=== PATIENT | female | born 1950 | race Caucasian/White ===

== ENCOUNTER 2018-09-30 16:18 | Outpatient (REF) | payer BC, SELFPAY | END 2018-09-30 16:38 | LOC: NCHCN 16:18 | PROVIDERS: PCP Family Medicine; Visit Provider Family Medicine | DX: R30.0 Dysuria (principal) | CPT/HCPCS: 87077; 87086; 87186 ==

== ENCOUNTER 2018-11-11 14:38 | Outpatient (REF) | payer BC, SELFPAY ==
[2018-11-11 21:25] LABS: Anion Gap 11.8 mmol/L (3-11); BUN 28 mg/dL (7-18); CO2 26.2 mmol/L (21.0-32.0); CREATININE 1.02 mg/dL (0.55-1.02); Calcium 9.2 mg/dL (8.5-10.1); Chloride 102 mmol/L (98-107); Estimated GFR 54.22 (mL/min/1.73m2); Glucose 104 mg/dL (70-100); Potassium 4.1 mmol/L (3.5-5.1); Sodium 140 mmol/L (136-145); TSH (W/Ref FT4) 1.25 uIU/mL (0.358-3.74)
== END 2018-11-11 14:58 ==
LOC: NCHCN 14:38
PROVIDERS: PCP Family Medicine; Visit Provider Family Medicine
DX: M06.9 Rheumatoid arthritis, unspecified (principal); E03.9 Hypothyroidism, unspecified
CPT/HCPCS: 80048; 84443

== ENCOUNTER 2019-12-14 02:41 | Outpatient (CLI) | payer BC, SELFPAY ==
[2019-12-14 12:10] LABS: TSH (W/Ref FT4) 1.31 uIU/mL (0.36-3.74)
== END 2019-12-14 03:01 ==
PROVIDERS: PCP Family Medicine; Visit Provider Family Medicine
DX: E03.9 Hypothyroidism, unspecified (principal)
CPT/HCPCS: 36415; 84443

== ENCOUNTER 2020-04-13 04:25 | Outpatient (CLI) | payer BC, SELFPAY ==
[2020-04-14 20:39] LABS: COVID-19 RT-PCR Result NEGATIVE (Negative)
== END 2020-04-13 04:45 ==
PROVIDERS: PCP Family Medicine; Visit Provider Family Medicine
DX: Z20.828 Contact with and (suspected) exposure to other viral communicable diseases (principal)
CPT/HCPCS: U0003

== ENCOUNTER 2020-04-27 14:18 | Outpatient (REF) | payer BC, SELFPAY ==
[2020-04-27 19:20] LABS: HCT 36.5 % (36.0-46.0); HGB 11.8 g/dL (11.2-15.7); MCH 32.7 pg (27.0-33.0); MCHC 32.3 % (32.0-36.0); MCV 101.1 fL (80-95); MPV 9.9 fL (8.0-11.0); Platelet Count 309 10^3/uL (130-400); RBC 3.61 10^6/uL (3.93-5.22); RDW 12.2 % (11.7-14.6); RDW-SD 45.6 fL; WBC 7.86 10^3/uL (4.4-10.8)
[2020-04-27 21:11] LABS: ESR 18 mm/hr (0-30)
[2020-04-29 17:20] LABS: CRP, High Sensitivity 1.09 mg/L (See Note)
== END 2020-04-27 14:38 ==
LOC: NCHCN 14:18
PROVIDERS: PCP Family Medicine; Visit Provider Family Medicine
DX: Z00.00 Encounter for general adult medical examination without abnormal findings (principal); M06.9 Rheumatoid arthritis, unspecified; E03.9 Hypothyroidism, unspecified
CPT/HCPCS: 85027; 85652; 86141

== ENCOUNTER 2020-06-14 19:49 | Outpatient (REF) | payer BC, SELFPAY | END 2020-06-14 20:09 | LOC: NCHCN 19:49 | PROVIDERS: PCP Family Medicine; Visit Provider Family Medicine | DX: R30.0 Dysuria (principal) | CPT/HCPCS: 87077; 87086; 87186 ==

== ENCOUNTER 2021-11-22 03:33 | Outpatient (CLI) | payer OTHER, SELFPAY ==
[2021-11-22 16:49] LABS: Iron 15 ug/dL (50-170); Total Iron Binding Capacity 585 ug/dL (250-450)
[2021-11-25 09:40] LABS: Transferrin 429 mg/dL (201-352)
== END 2021-11-22 03:34 | disposition home or self-care (01) ==
LOC: LBO 03:33
PROVIDERS: PCP Family Medicine; Visit Provider Family Medicine
DX: Z00.00 Encounter for general adult medical examination without abnormal findings (principal); I10 Essential (primary) hypertension; D64.9 Anemia, unspecified; E03.9 Hypothyroidism, unspecified
CPT/HCPCS: 36415; 80061; 83540; 83550; 84466

== ENCOUNTER 2021-12-10 03:04 | Outpatient (CLI) | payer OTHER, SELFPAY ==
[2021-12-10 15:05] LABS: Abs Immature Grans 0.01 10^3/uL (0.0-0.06); Absolute Basophil Count 0.08 10^3/uL (0.0-0.2); Absolute Lymphocyte Count 2.59 10^3/uL (1.2-3.4); Absolute Monocyte Count 0.91 10^3/uL (0.1-0.8); Absolute Neutrophil Count 5.24 10^3/uL (1.2-6.7); Basophils % 0.9; HCT 28.1 % (36.0-46.0); HGB 8.8 g/dL (11.2-15.7); Immature Grans % 0.1; Lymphocytes % 29.3; MCH 25.6 pg (27.0-33.0); MCHC 31.3 % (32.0-36.0); MCV 82 fL (80-95); MPV 9.8 fL (8.0-11.0); Monocytes % 10.3; Neutrophils % 59.4; Platelet Count 312 10^3/uL (130-400); RBC 3.44 10^6/uL (3.93-5.22); RDW 17.8 % (11.7-14.6); RDW-SD 52.5 fL; WBC 8.83 10^3/uL (4.4-10.8)
[2021-12-10 15:47] LABS: CO2 27.3 mmol/L (21.0-32.0)
[2021-12-10 16:27] LABS: ALT 28 U/L (14-59); AST 22 U/L (15-37); Albumin 3.8 g/dL (3.4-5.0); Alkaline Phosphatase 45 U/L (46-116); Anion Gap 9.7 mmol/L (3-11); BUN 32 mg/dL (7-18); Bilirubin, Total 0.3 mg/dL (0.2-1.0); CREATININE 1.4 mg/dL (0.55-1.02); Calcium 9.1 mg/dL (8.5-10.1); Chloride 104 mmol/L (98-107); Estimated GFR 37.28 (mL/min/1.73m2); Glucose 113 mg/dL (74-106); Potassium 3.8 mmol/L (3.5-5.1); Sodium 141 mmol/L (136-145); Total Protein 6.7 g/dL (6.4-8.2)
[2021-12-12 18:41] LABS: Ferritin 7 ng/mL (10-291)
== END 2021-12-10 03:05 | disposition home or self-care (01) ==
LOC: LBO 03:04
PROVIDERS: PCP Family Medicine; Visit Provider Family Medicine
DX: Z00.00 Encounter for general adult medical examination without abnormal findings (principal); E03.9 Hypothyroidism, unspecified; D64.9 Anemia, unspecified; I10 Essential (primary) hypertension
CPT/HCPCS: 36415; 80053; 82728; 85025

== ENCOUNTER 2022-01-03 00:55 | Outpatient (RCR) | payer OTHER, SELFPAY ==
[2021-12-27] MEDS: Normal Saline Flush 10 ML SYR IVP (13:37)
[2021-12-27] MEDS: IRON SUCROSE COMPLEX 200 MG in Normal Saline 100 ML 440 MG IVPB (13:44)
[2022-01-03] MEDS: IRON SUCROSE COMPLEX 200 MG in Normal Saline 100 ML 440 MG IVPB (13:42)
[2022-01-03] MEDS: Normal Saline Flush 10 ML SYR IVP (13:46)
== END 2022-01-09 23:59 | disposition home or self-care (01) ==
LOC: INF 00:55
PROVIDERS: PCP Family Medicine; Visit Provider Nurse Practitioner Acute Care
DX: D50.9 Iron deficiency anemia, unspecified (principal)
CPT/HCPCS: 96365; J1756

== ENCOUNTER 2022-01-10 02:05 | Outpatient (RCR) | payer OTHER, SELFPAY ==
[2022-01-10] MEDS: IRON SUCROSE COMPLEX 200 MG in Normal Saline 100 ML 440 MG IVPB (13:38)
[2022-01-10] MEDS: Normal Saline Flush 10 ML SYR IVP (13:43)
[2022-01-10 13:56] LABS: HCT 36.7 % (36.0-46.0); HGB 11.5 g/dL (11.2-15.7)
[2022-01-10 14:24] LABS: CREATININE 0.9 mg/dL (0.55-1.02); Ferritin 190 ng/mL (8-252)
[2022-01-10 14:39] LABS: Iron 110 ug/dL (50-170)
== END 2022-02-09 23:59 | disposition home or self-care (01) ==
LOC: INF 02:05
PROVIDERS: PCP Family Medicine; Visit Provider Nurse Practitioner Acute Care
DX: D50.9 Iron deficiency anemia, unspecified (principal)
CPT/HCPCS: 36415; 96365; 82565; 82728; 83540; 85014; 85018; J1756

== ENCOUNTER 2022-03-26 01:51 | Outpatient (CLI) | payer OTHER, SELFPAY ==
[2022-03-26 10:23] LABS: Abs Immature Grans 0.02 10^3/uL (0.0-0.06); Absolute Basophil Count 0.09 10^3/uL (0.0-0.2); Absolute Lymphocyte Count 2.19 10^3/uL (1.2-3.4); Absolute Monocyte Count 0.64 10^3/uL (0.1-0.8); Absolute Neutrophil Count 4.19 10^3/uL (1.2-6.7); Basophils % 1.3; HCT 40.4 % (36.0-46.0); HGB 13.9 g/dL (11.2-15.7); Immature Grans % 0.3; Lymphocytes % 30.7; MCHC 34.4 % (32.0-36.0); MCV 93 fL (80-95); MPV 9.9 fL (8.0-11.0); Neutrophils % 58.7; Platelet Count 272 10^3/uL (130-400); RBC 4.34 10^6/uL (3.93-5.22); RDW 17.6 % (11.7-14.6); RDW-SD 61.3 fL; Reticulocyte 1.2 % (0.5-2.4); WBC 7.13 10^3/uL (4.4-10.8)
[2022-03-26 10:47] LABS: Anion Gap 10.3 mmol/L (3-11); BUN 25 mg/dL (7-18); CO2 29.7 mmol/L (21.0-32.0); CREATININE 1.2 mg/dL (0.55-1.02); Calcium 9.1 mg/dL (8.5-10.1); Chloride 99 mmol/L (98-107); Ferritin 72 ng/mL (8-252); Glucose 134 mg/dL (74-106); Sodium 139 mmol/L (136-145)
[2022-03-26 10:56] LABS: Iron 120 ug/dL (50-170); Total Iron Binding Capacity 425 ug/dL (250-450)
== END 2022-03-26 01:52 | disposition home or self-care (01) ==
LOC: LBO 01:51
PROVIDERS: PCP Family Medicine; Visit Provider Family Medicine
DX: D50.9 Iron deficiency anemia, unspecified (principal); I10 Essential (primary) hypertension; Z79.899 Other long term (current) drug therapy
CPT/HCPCS: 36415; 80048; 82728; 83540; 83550; 85025; 85045

== ENCOUNTER 2022-04-03 06:11 | Day surgery (SDC) | payer OTHER, SELFPAY ==
--- NOTE | 2022-04-02 21:06 | W.COLOREPORT ---
Colonoscopy Report Date of procedure: 04/03/22 Pre-op diagnosis general: Anemia Post-op diagnosis procedure note: other (Gastritis, sigmoid) Procedure: EGD and colonoscopy Surgeon: Praneeth Fischer Anesthesia Type: General:No Airway Estimated blood loss (mL): 10 Pathology: other (Antral ulcer) Complications: None Disposition: same day Indications: Pari is 71-year-old woman with anemia. Prep: Miralax/Dulcolax Procedure Start Time: 07:24 Procedure End Time: 07:59 Findings: Antral ulcer Grade 3 hemorrhoids Sigmoid diverticulosis Procedure Description: After the initiation of monitored anesthetic care, and with the assistance of a bite block, I advanced a standard gastroscope through the mouth past the hypopharynx and into the esophagus.? Under the direct vision of the scope, I advanced down the esophagus into the stomach.? Once I entered the stomach, I performed a brief inspection, followed by retroflexion towards the gastric cardia.? This appeared normal.? After that, I gently advanced the scope around the incisura angularis and examined the pylorus.? There is a small lesion in the prepyloric region slightly anterior and towards the lesser curve. There were no stigmata of active bleeding. I did not see any evidence of a blood vessel in the base. Using cold forceps, I biopsied the lesion. There was minimal bleeding.? Next, I advanced the scope through the pylorus into the duodenum.? The mucosa was pink and healthy appearing.? There were no abnormalities.? I was able to visualize bile draining into the duodenum through the ampulla Vater. ?Next, I began retracting the endoscope.? Again, I returned to the stomach which was carefully examined once again.? I then gently desufflated some of the stomach, and withdrew the endoscope into the distal esophagus. The Z-line was normal-appearing at the GE junction. ?Finally, I withdrew the scope along the length of the esophagus taking great care to examine the entirety of the mucosa.? I did not appreciate any abnormalities. Next, we met with patient in the left lateral decubitus position., I began by performing an external anorectal exam.? Perineum and skin were normal, as was the anal verge.? There were large external hemorrhoids.? Next, I performed a digital rectal exam.? I did not appreciate any abnormal findings.? Next, I advanced a colonoscope into the rectal vault.? I performed retroflexion.? I did see large internal hemorrhoids.? Using insufflation, I then advanced the colonoscope beyond the rectal folds and into the sigmoid colon before advancing towards the cecum.? There were extensive sigmoid diverticula. the quality of the prep was adequate.? The scope was noted to be in the cecum by identification of the ileocecal valve and appendiceal orifice.? I then began withdrawing the colonoscope using repeated irrigation as necessary for full evaluation of the colonic mucosa. ?Once the scope was withdrawn to the level of the rectum, great care was taken to examine portions of the rectal folds.? Finally, the scope was withdrawn and the patient was brought to the same-day surgery recovery unit as the anesthetic wore off. ?The findings and instructions were shared with the patient prior to discharge.
--- NOTE | 2022-04-02 21:09 | W.PM.DSUDISC ---
Discharge Plan Disposition Patient Disposition: HOME Condition: Good Discharge Details Reason For Visit: EGD and Colonoscopy Attending Provider: Praneeth Fischer Primary Care Provider: Tammy Nelson V Home Meds and New Rx's Prescriptions: Continued polyethylene glycol 3350 [Miralax] 17 gram/dose powder 17 g PO DAILY vitamin B complex Capsule 1 cap PO DAILY clindamycin phosphate [Cleocin] 2 % cream 1 appful vaginal QHS Rx Instructions: for 3 days colchicine 0.6 mg capsule 0.6 mg PO DAILY hydrochlorothiazide 50 mg tablet 50 mg PO DAILY calcium carbonate-vitamin D3 1 EACH tablet 1 tab PO DIRECTED aspirin [Aspir-81] 81 MG tablet,delayed release (DR/EC) 81 mg PO DIRECTED levothyroxine 50 MCG tablet 0.5 mg PO DIRECTED Discharge Instructions Instructions: Peptic Ulcer (DC), Colonoscopy (DC), Upper Endoscopy (DC) Additional Instructions: 1. If tolerated, consume a soft, low fiber diet for 1-2 days. 2[address] Do not drive, drink alcohol, operate machinery, make critical decisions, or do activities that require coordination or balance for 24 hours. 3. Because air was put into your colon during the procedure, expelling air from your rectum (passing gas or farting) is normal. 4. You may not have a bowel movement for 1-3 days because of the colonoscopy prep. This is normal. 5. You may experience a sore throat for 24 to 48 hours. You may use throat lozenges or gargle with warm salt water to relieve the discomfort. 6. Because air was put into your stomach during the procedure, you may experience some belching. 7. Go directly to the emergency room if you notice any of the following: Develop chills (warm to touch), or if you have a thermometer and your temperature is above 101 Difficulty breathing or difficultly swallowing Persistent vomiting Severe abdominal pain, other than gas cramps Severe chest pain Black, tarry stools Any bleeding ? exceeding one tablespoon 8. Call your physician if the site where your intravenous was started becomes red, swollen, painful, and warm to touch. 9. Your physician has reviewed your pre-procedure medications. Please continue to take those medications as previously ordered. You will be given specific information/education regarding any changes to your medications before leaving. Referrals: Tammy Nelson MD [Primary Care Provider] - Activity:: Activity as Tolerated Diet:: As Tolerated Discharge Orders Discharge Orders: Discharge Order (Routine); Ordered 04/03/22 Ordered By: Praneeth Fischer
[2022-04-03 06:15] VITALS: BP 123/76; PULSE 65; RESP 18; TEMP 36.2; O2SAT 98
[2022-04-03] MEDS: Lactated Ringers 1,000 ML 80 ML IV (06:40)
--- NOTE | 2022-04-03 06:53 | W.PM.HP.N ---
Date of service: 04/03/22 Time of Service: 06:53 Assessment and Plan Assessment and plan (1) Anemia: Status: Chronic Assessment and plan: EGD and colonoscopy today History of Present Illness History of Present Illness Chief Complaint: iron deficiency anemia Narrative: Pari is 71 years old with a longstanding history of pseudogout.? Her pain is typically treated with ibuprofen, but she has recently has some success with alternative therapies. Recently, she was experiencing unintentional weight loss and fatigue.? Evaluation of those symptoms demonstrated an anemia with an elevated reticulocyte distribution width.? Further evaluation demonstrated iron deficiency anemia, and so far, she has had a favorable response to treatment. Importantly, she also has a family history of colorectal cancer, and a colonoscopy approximately 5 years ago demonstrated polyps. Generally, she has been feeling better over the past several weeks, and recent labs are more reassuring. She has had some increased exercise tolerance and less fatigue.? Otherwise, review of systems is negative. Review of Systems Constitutional Constitutional: Denies fatigue and Denies lethargy Eyes Eyes: Reports system reviewed and no additional complaints, except as documented Cardiovascular Cardiovascular: Reports system reviewed and no additional complaints, except as documented and Denies dyspnea Respiratory Respiratory: Denies cough and Denies dyspnea Gastrointestinal Gastrointestinal: Denies abdominal pain Musculoskeletal Musculoskeletal: Reports system reviewed and no additional complaints, except as documented Neurologic Neurologic: Reports system reviewed and no additional complaints, except as documented Psychiatric Psychiatric: Reports system reviewed and no additional complaints, except as documented Endocrine Endocrine: Denies fatigue PFSH All Active Problems Unintentional weight loss (Acute) Anemia (Chronic) Medical History Arthralgia Calcium pyrophosphate deposition disease Chronic cough Dysuria Encounter for screening for other viral diseases Family history of colon cancer Hypertension Hypothyroidism Menopausal state Migraine Osteoarthritis Sciatica Unspecified lump in right breast, subareolar Social History (System 05/28/20 @ 14:31 by Anai Shah) Smoking/Tobacco Use Status: Former Tobacco Use Quit Date: 07/13/87 Smoking risk assessment performed?: Yes Alcohol Intake: current Alcohol Intake frequency: a few times a week Alcohol type: wine Drug use: Never Substance use type: does not use Do you feel safe at home: Yes Do you feel safe in your relationship?: Yes Meds Allergies and Home Medications Allergies Allergy/AdvReac Type Severity Reaction Status Date / Time egg AdvReac Unknown Chicken Unverified 04/02/22 14:29 egg-BP drops, migraine sumatriptan [From Imitrex] AdvReac Unknown HTN Unverified 04/02/22 14:29 Home Medications Medication Instructions Recorded Confirmed Type aspirin 81 mg tablet,delayed 81 mg PO DIRECTED 10/27/14 04/02/22 History release (Aspir-) calcium carbonate 600 mg-vitamin 1 tab PO DIRECTED 10/27/14 04/03/22 History D3 5 mcg (200 unit) tablet levothyroxine 50 mcg tablet 0.5 mg PO DIRECTED 10/27/14 04/03/22 History clindamycin phosphate 2 % vaginal 1 appful vaginal QHS 01/30/22 04/02/22 History cream (Cleocin) colchicine 0.6 mg capsule 0.6 mg PO DAILY 01/30/22 04/03/22 History hydrochlorothiazide 50 mg tablet 50 mg PO DAILY 01/30/22 04/03/22 History polyethylene glycol 3350 17 17 g PO DAILY 01/30/22 04/03/22 History gram/dose oral powder (Miralax) vitamin B complex 1 cap PO DAILY 01/30/22 04/03/22 History Exam Const General: cooperative, healthy appearing and comfortable Orientation: awake and oriented x3 Eyes General: appearance normal, both eyes and all related structures Conjunctivae: conjunctivae normal Sclera: sclerae normal Resp Effort & Inspection: normal respiratory effort and able to speak in complete sentences Auscultation: clear to auscultation bilaterally Cardio Jugular venous pressure: no JVD Rate: regular rate Rhythm: regular rhythm Heart Sounds: S1 normal and S2 normal GI Inspection: non-distended Palpation: soft, no guarding, no hernias and nontender Auscultation: normal bowel sounds Skin General skin exam: normal turgor Neuro General: patient alert, patient awake and patient oriented x3 Cognition: normal cognition Extrem Right lower extremity: no edema Left lower extremity: no edema Results Last Vital Signs Temp 97.2 F L 04/03/22 06:15 Pulse 65 04/03/22 06:15 Resp 18 04/03/22 06:15 BP 123/76 04/03/22 06:15 Pulse Ox 98 04/03/22 06:15
--- NOTE | 2022-04-03 07:05 | W.ANESPRE ---
General Info Date of Service Date Performed: 04/03/22 Height: 5 ft 1 in Weight: 55.9 kg Body Mass Index (BMI): 23.3 Surgical Procedure: Operation Date: 04/03/22 07:35 Proposed Procedure Side Surgeon p Colonoscopy/Gastroscopy Praneeth Fischer MD Meds Allergies and Home Medications Allergies Allergy/AdvReac Type Severity Reaction Status Date / Time egg AdvReac Unknown Chicken Unverified 04/02/22 14:29 egg-BP drops, migraine sumatriptan [From Imitrex] AdvReac Unknown HTN Unverified 04/02/22 14:29 Home Medication Medication Instructions Recorded aspirin 81 mg tablet,delayed 81 mg PO DIRECTED 10/27/14 release (Aspir-) calcium carbonate 600 mg-vitamin 1 tab PO DIRECTED 10/27/14 D3 5 mcg (200 unit) tablet levothyroxine 50 mcg tablet 0.5 mg PO DIRECTED 10/27/14 clindamycin phosphate 2 % vaginal 1 appful vaginal QHS 01/30/22 cream (Cleocin) colchicine 0.6 mg capsule 0.6 mg PO DAILY 01/30/22 hydrochlorothiazide 50 mg tablet 50 mg PO DAILY 01/30/22 polyethylene glycol 3350 17 17 g PO DAILY 01/30/22 gram/dose oral powder (Miralax) vitamin B complex 1 cap PO DAILY 01/30/22 Current Visit Medications: Current Medications Generic Name Dose Route Start Last Admin Trade Name Freq PRN Reason Stop Dose Admin Ringer's Solution 1,000 mls @ 80 mls/hr 04/03/22 06:00 04/03/22 06:40 IV 05/02/22 23:59 80 mls/hr INFUSION GAVI Administration IV Miscellaneous Supplies 1 each 04/03/22 06:00 Iv Access IV 05/02/22 23:59 DIRECTED GAVI Sodium Chloride 0 ml 04/03/22 06:00 Normal Saline Flush 10 Ml Syr IV 05/02/22 23:59 PRN PRN Sodium Chloride 0 ml 04/03/22 06:00 Normal Saline 10 Ml Vial IJ 05/02/22 23:59 DIRECTED PRN Sterile Water 0 ml 04/03/22 06:00 Water,Injection,Sterile 10 Ml Vial IJ 05/02/22 23:59 DIRECTED PRN PFSH Active Problems Active Problems: Problem Status Onset Code Unintentional weight loss R63.4 Anemia D64.9 Medical History Medical History Arthralgia Calcium pyrophosphate deposition disease Chronic cough Dysuria Encounter for screening for other viral diseases Family history of colon cancer Hypertension Hypothyroidism Menopausal state Migraine Osteoarthritis Sciatica Unspecified lump in right breast, subareolar Tobacco Smoking/Tobacco Use Status: Former Tobacco Use Alcohol Alcohol Intake: current Alcohol intake frequency: a few times a week Alcohol type: wine Substance Use Substance use: Never Substance use type: does not use Vital Signs and Lab Results Vital Signs Most Recent Vital Signs in EMR: Most Recent Vital Signs Temp Pulse Resp BP Pulse Ox 36.2 C L 65 18 123/76 98 04/03/22 06:15 04/03/22 06:15 04/03/22 06:15 04/03/22 06:15 04/03/22 06:15 Lab Results Blood Type / Crossmatch: No Data to Display Complete Blood Count: White Blood Count 7.13 10^3/uL (4.4-10.8) 03/26/22 09:57 Red Blood Count 4.34 10^6/uL (3.93-5.22) 03/26/22 09:57 Hemoglobin 13.9 g/dL (11.2-15.7) 03/26/22 09:57 Hematocrit 40.4 % (36.0-46.0) 03/26/22 09:57 Platelet Count 272 10^3/uL (130-400) 03/26/22 09:57 Complete Metabolic Panel: Sodium Level 139 mmol/L (136-145) 03/26/22 09:57 Potassium Level 3.0 mmol/L (3.5-5.1) L 03/26/22 09:57 Chloride Level 99 mmol/L (98-107) 03/26/22 09:57 Carbon Dioxide Level 29.7 mmol/L (21.0-32.0) 03/26/22 09:57 Blood Urea Nitrogen 25 mg/dL (7-18) H 03/26/22 09:57 Creatinine 1.2 mg/dL (0.55-1.02) H 03/26/22 09:57 Calcium Level 9.1 mg/dL (8.5-10.1) 03/26/22 09:57 Glucose Level 134 mg/dL (74-106) H 03/26/22 09:57 Liver Function Panel: No Data to Display Coagulation Panel: No Data to Display Cardiac Panel: No Data to Display Arterial Blood Gas: No Data to Display Venous Blood Gas: No Data to Display Pancreas Panel: No Data to Display Thyroid Panel: No Data to Display Infectious Disease: No Data to Display Blood Cultures: No Data to Display Toxicology Panel: No Data to Display Anesthesia Assessment and Plan Anesthesia History Personal History: No History of Anesthesia Complications Family History: No Family History of Anesthesia Complications Exercise Tolerance Exercise Tolerance: Metabolic Equivalents>4 Pertinent Negatives Pertinent Negatives: No Symptoms of GERD, No Major Cardiovascular Symptoms or Complaints, No Major Pulmonary Symptoms or Complaints (Quit 1988 Smoking cigarettes ) and No History of CVA/TIA Cardiac & Pulmonary Exam Cardiac Exam: Normal S1/S2 Heart Sounds Pulmonary Exam: Clear Bilateral Breath Sounds Implantable Cardiac Device Does patient have a Pacemaker or an ICD?: No Airway Exam Known Difficult Airway: No Mallampati Class: 1 Mouth Opening: Normal (> 3cm) Thyromental Distance: Greater than 3 cm Neck Range of Motion: Full ROM Neck Circumference: Normal Teeth Condition: Normal Dentition Airway Comments: #25 crown ASA Classification ASA Score: ASA 2 Emergency Case?: No NPO Status NPO Status: NPO Clears >2 hours, Solids >8 hours Anesthesia Plan Resuscitation Status: Full Code Anesthesia Technique: General Anesthesia Airway Planned: Natural Airway Monitors Used: Standard Monitors
[2022-04-03 07:09] VITALS: BMI 23.3
--- NOTE | 2022-04-03 07:27 | STOM_PTH ---
PATIENT: Pari Curiel LOC: [facility] U#:[id number] AGE/SX: 71/F ROOM: RE04/03/[address]: Praneeth Fischer MD : [id number] BED: DIS: 04/03/2022 SPEC #: [id number] RECD: 04/03/22 12:39 STATUS: YANA RE #: [id number] DOMINICK: 04/03/22 07:[address]: Praneeth Fischer DEPT: Surgical Specimen RECD BY: Eloisa Bennett ENTERED: 04/03/22 12:39 SP TYPE: STOMACH OTHR DR: Tammy Nelson V Tissues: 1 - STOMACH BIOPSY Procedures: GROSS AND MICRO LEVEL 4 Comments: [id number]
[2022-04-03 08:05] VITALS: BP 118/76; PULSE 62; RESP 18; TEMP 36.4; O2SAT 96
--- NOTE | 2022-04-03 08:08 | W.ANESPOSTOP ---
Postoperative Evaluation Date, Time and Location Date Performed: 04/03/22 Time Performed: 08:09 Patient Location: Day Surgery Unit Vital Signs Most Recent Imported Vital Signs: Most Recent Vital Signs Temp Pulse Resp BP Pulse Ox 36.2 C L 65 18 123/76 98 04/03/22 06:15 04/03/22 06:15 04/03/22 06:15 04/03/22 06:15 04/03/22 06:15 Most Recent Manually Entered Vital Signs: Adult Blood Pressure: 118/76 Heart Rate: 61 Respirations: 12 Oxygen Saturation (%): 98 Temperature (C): 36.3 C Pain Score (0-10 Scale): 0 Assessment Mental Status: Awake (Alert & Oriented to Patient Baseline) Airway and Respiratory Function: Patent airway with normal (patient baseline) respiratory exam Cardiovascular Function: Hemodynamically Stable Hydration Status: Adequately Hydrated Nausea & Vomiting: No Nausea or Vomiting Pain: Pt. Denies Any Pain Peripheral Nerve Block: Patient did not receive a nerve block
[2022-04-03 08:10] VITALS: BP 118/76; PULSE 61; RESP 12; TEMPC 36.3; O2SAT 98
[2022-04-03 08:18] VITALS: BP 118/76; PULSE 62; RESP 18; TEMP 36.4; O2SAT 96
[2022-04-03 08:35] VITALS: BP 162/92; PULSE 56; RESP 18; TEMP 36.2; O2SAT 100
== END 2022-04-03 08:58 | disposition home or self-care (01) ==
PROVIDERS: PCP Family Medicine; Visit Provider Surgery
PROC: (CPT 43239; principal; 2022-04-03 07:30)
DX: D50.9 Iron deficiency anemia, unspecified (principal); K31.89 Other diseases of stomach and duodenum; R63.4 Abnormal weight loss; Z80.0 Family history of malignant neoplasm of digestive organs; Z86.010 Personal history of colon polyps; K29.70 Gastritis, unspecified, without bleeding; K64.8 Other hemorrhoids; K57.30 Diverticulosis of large intestine without perforation or abscess without bleeding
CPT/HCPCS: 43239; 45378; 88305

== ENCOUNTER 2022-07-28 02:57 | Outpatient (CLI) | payer OTHER, SELFPAY ==
[2022-07-28 13:45] LABS: Abs Immature Grans 0.01 10^3/uL (0.0-0.06); Absolute Basophil Count 0.07 10^3/uL (0.0-0.2); Absolute Eosinophil Count 0.01 10^3/uL (0.0-0.7); Absolute Lymphocyte Count 2.42 10^3/uL (1.2-3.4); Absolute Monocyte Count 0.71 10^3/uL (0.1-0.8); Absolute Neutrophil Count 4.57 10^3/uL (1.2-6.7); Basophils % 0.9; Eosinophils % 0.1; HCT 41.5 % (36.0-46.0); HGB 14.2 g/dL (11.2-15.7); Immature Grans % 0.1; Lymphocytes % 31.1; MCH 33.3 pg (27.0-33.0); MCHC 34.2 % (32.0-36.0); MCV 97 fL (80-95); MPV 9.5 fL (8.0-11.0); Monocytes % 9.1; Neutrophils % 58.7; Platelet Count 280 10^3/uL (130-400); RBC 4.26 10^6/uL (3.93-5.22); RDW-SD 46.4 fL; WBC 7.79 10^3/uL (4.4-10.8)
[2022-07-28 14:33] LABS: Anion Gap 8.4 mmol/L (3-11); BUN 34 mg/dL (7-18); CO2 29.6 mmol/L (21.0-32.0); Calcium 9.7 mg/dL (8.5-10.1); Chloride 99 mmol/L (98-107); Estimated GFR 60.61 (mL/min/1.73m2); Glucose 104 mg/dL (74-106); Sodium 137 mmol/L (136-145)
[2022-07-28 15:11] LABS: Potassium 2.9 mmol/L (3.5-5.1)
== END 2022-07-28 02:58 | disposition home or self-care (01) ==
PROVIDERS: PCP Family Medicine; Visit Provider Internal Medicine Rheumatology
DX: M06.9 Rheumatoid arthritis, unspecified (principal); Z79.899 Other long term (current) drug therapy; I10 Essential (primary) hypertension
CPT/HCPCS: 36415; 80048; 85025

== ENCOUNTER 2022-09-10 18:13 | Outpatient (REF) | payer OTHER, SELFPAY ==
[2022-09-10 20:02] LABS: HCT 38.7 % (36.0-46.0); HGB 13.1 g/dL (11.2-15.7)
[2022-09-10 20:29] LABS: Anion Gap 8.7 mmol/L (3-11); BUN 34 mg/dL (7-18); CO2 29.3 mmol/L (21.0-32.0); CREATININE 1.2 mg/dL (0.55-1.02); Calcium 9.4 mg/dL (8.5-10.1); Chloride 102 mmol/L (98-107); Ferritin 58 ng/mL (8-252); Glucose 124 mg/dL (74-106); Sodium 140 mmol/L (136-145); TSH (W/Ref FT4) 1.19 uIU/mL (0.36-3.74)
== END 2022-09-10 18:14 | disposition home or self-care (01) ==
LOC: NCHCN 18:13
PROVIDERS: PCP Family Medicine; Visit Provider Family Medicine
DX: D64.9 Anemia, unspecified (principal); I10 Essential (primary) hypertension; E87.6 Hypokalemia; R63.4 Abnormal weight loss; E03.9 Hypothyroidism, unspecified
CPT/HCPCS: 80048; 82728; 84443; 85014; 85018

== ENCOUNTER 2022-09-22 03:02 | Outpatient (RCR) | payer OTHER, SELFPAY ==
[2022-09-22] MEDS: IRON SUCROSE COMPLEX 200 MG in Normal Saline 100 ML 440 MG IVPB (14:40)
[2022-09-22] MEDS: Normal Saline Flush 10 ML SYR IVP (14:42)
== END 2022-10-10 23:59 | disposition home or self-care (01) ==
LOC: INF 03:02
PROVIDERS: PCP Family Medicine; Visit Provider Nurse Practitioner Family
DX: Z86.2 Personal history of diseases of the blood and blood-forming organs and certain disorders involving the immune mechanism (principal); D50.9 Iron deficiency anemia, unspecified
CPT/HCPCS: 96365; J1756

== ENCOUNTER 2022-09-23 16:20 | Outpatient (REF) | payer OTHER, SELFPAY | END 2022-09-23 16:21 | disposition home or self-care (01) | LOC: NCHCN 16:20 | PROVIDERS: PCP Family Medicine; Visit Provider Physician Assistant Medical | DX: R35.0 Frequency of micturition (principal) | CPT/HCPCS: 87086 ==

== ENCOUNTER 2022-12-10 02:40 | Outpatient (CLI) | payer OTHER, SELFPAY ==
--- NOTE | 2022-12-10 09:03 | DI.MAMMO_ITS ---
Exam(s) MAMMO SCREENING EXAM: MAMMO SCREENING CLINICAL HISTORY: SCREENING, Z12.31; [facility], Z00.00 TECHNIQUE: Mammograms were interpreted according to the usual protocol including computer analysis w [employer] CAD system, tomosynthesis and C-view imaging. COMPARISON: 2016 through 2021 from [facility] FINDINGS: The breasts are composed of heterogeneously dense fibroglandular densities, Breast Density category C . No suspicious masses or suspicious microcalcifications are seen. Multiple scattered benign coarse ca lcifications are again noted bilaterally. No skin thickening or abnormal axillary lymph nodes are seen. There has been no significant change from prior exams. IMPRESSION: BI-RADS Cat 2 - Benign Findings Yearly screening mammography is recommended. Breast Density Category C, heterogeneously Dense. The mammogram demonstrates the patient's breast tissue is dense. Dense breast tissue is very common a nd is not abnormal but dense breast tissue can make it harder to find cancer on a mammogram. Also, de nse breast tissue may increase breast cancer risk. This information about the result of the mammogram report was provided to the patient to raise their awareness. Use this report when you speak with the patient about their risks for breast cancer, which includes their family history. At that time, you may recommend additional screening tests (Ultrasound or MRI) as they might be useful based on their r isk. A negative radiographic report should not delay biopsy if a dominant or clinically suspicious mass is present. Up to ten percent of cancers are not identified on mammography. A negative report may reinforce clinical impression. Adenosis and dense breasts may obscure an underlying neoplasm. False positive reports average 6 to 10%.
== END 2022-12-10 03:00 ==
LOC: DI 02:40
PROVIDERS: PCP Family Medicine; Visit Provider Family Medicine
DX: Z12.31 Encounter for screening mammogram for malignant neoplasm of breast (principal)
CPT/HCPCS: 77063; 77067

== ENCOUNTER 2022-12-29 14:46 | Outpatient (CLI) | payer OTHER, SELFPAY ==
[2022-12-29 14:42] LABS: HCT 38.8 % (36.0-46.0)
[2022-12-29 15:24] LABS: Anion Gap 7.3 mmol/L (3-11); BUN 26 mg/dL (7-18); CO2 27.7 mmol/L (21.0-32.0); CREATININE 0.9 mg/dL (0.55-1.02); Calcium 9.5 mg/dL (8.5-10.1); Chloride 100 mmol/L (98-107); Estimated GFR 68.77 (mL/min/1.73m2); Ferritin 133 ng/mL (8-252); Glucose 96 mg/dL (74-106); Potassium 4.2 mmol/L (3.5-5.1); Sodium 135 mmol/L (136-145)
== END 2022-12-29 14:47 | disposition home or self-care (01) ==
LOC: LBO 14:47
PROVIDERS: PCP Family Medicine; Visit Provider Family Medicine
DX: I10 Essential (primary) hypertension (principal); E87.6 Hypokalemia; D64.9 Anemia, unspecified
CPT/HCPCS: 36415; 80048; 82728; 85014; 85018

== ENCOUNTER 2023-10-08 19:35 | Outpatient (REF) | payer OTHER, SELFPAY ==
[2023-10-08 19:10] LABS: HCT 37.2 % (36.0-46.0); HGB 12.5 g/dL (11.2-15.7); MCH 33.1 pg (27.0-33.0); MCHC 33.6 % (32.0-36.0); MCV 98 fL (80-95); MPV 10.1 fL (8.0-11.0); Platelet Count 252 10^3/uL (130-400); RBC 3.78 10^6/uL (3.93-5.22); RDW 12.9 % (11.7-14.6); RDW-SD 46.5 fL; WBC 7.41 10^3/uL (4.4-10.8)
[2023-10-08 19:28] LABS: Anion Gap 9.9 mmol/L (3-11); BUN 44 mg/dL (7-18); CO2 27.1 mmol/L (21.0-32.0); CREATININE 0.9 mg/dL (0.55-1.02); Calcium 9.2 mg/dL (8.5-10.1); Chloride 105 mmol/L (98-107); Estimated GFR 68.35 (mL/min/1.73m2); Glucose 116 mg/dL (74-106); Potassium 4.2 mmol/L (3.5-5.1); Sodium 142 mmol/L (136-145)
== END 2023-10-08 19:36 | disposition home or self-care (01) ==
LOC: NCHCN 19:35
PROVIDERS: PCP Family Medicine; Referring Provider Family Medicine; Visit Provider Family Medicine
DX: E03.9 Hypothyroidism, unspecified (principal); Z01.818 Encounter for other preprocedural examination
CPT/HCPCS: 80048; 85027; 84443

== ENCOUNTER 2024-10-18 15:51 | Outpatient (REF) | payer OTHER, SELFPAY ==
[2024-10-18 18:56] LABS: HCT 40.2 % (36.0-46.0); HGB 13.2 g/dL (11.2-15.7)
[2024-10-18 19:24] LABS: Anion Gap 9.5 mmol/L (3-11); BUN 40 mg/dL (7-18); CO2 28.5 mmol/L (21.0-32.0); CREATININE 0.9 mg/dL (0.55-1.02); Calcium 9.5 mg/dL (8.5-10.1); Chloride 104 mmol/L (98-107); Estimated GFR 67.92 (mL/min/1.73m2); Glucose 101 mg/dL (74-106); Potassium 4.8 mmol/L (3.5-5.1); Sodium 142 mmol/L (136-145); TSH (W/Ref FT4) 2.49 uIU/mL (0.36-3.74)
== END 2024-10-18 15:52 | disposition home or self-care (01) ==
LOC: NCHCN 15:51
PROVIDERS: PCP Family Medicine; Visit Provider Family Medicine
DX: Z00.00 Encounter for general adult medical examination without abnormal findings (principal)
CPT/HCPCS: 80048; 84443; 85014; 85018

== ENCOUNTER 2024-12-12 10:34 | Outpatient (CLI) | payer OTHER, SELFPAY ==
--- NOTE | 2024-12-12 10:30 | DI.RAD_ITS ---
Exam(s) XR HIP LT COMPLETE AP PELVIS EXAM: XR HIP LT COMPLETE AP PELVIS CLINICAL HISTORY: left hip pain. TECHNIQUE: 2D digital imaging was performed of the left hip. Two views were obtained. AP pelvis an d lateral left hip views were obtained. COMPARISON: CR BILATERAL HIPS ADULT from 06/18/2012 FINDINGS: BONES: No acute fracture is present. No bony destructive lesion is seen. JOINTS: No dislocation present. The left hip is well maintained except for mild joint space narrowing . There are degenerative changes seen in the lower visualized lumbar spine. The sacroiliac joints a re intact as is the symphysis pubis. SOFT TISSUE: Calcifications are seen in the pelvis most consistent with a degenerating fibroid. IMPRESSION: 1. Mild joint space narrowing of the left hip. 2. Degenerative changes seen in the visualized lower lumbar spine. DATA REPOSITORY: RADIATION DOSE DELIVERED:
== END 2024-12-12 10:35 | disposition home or self-care (01) ==
LOC: DIORS 10:35
PROVIDERS: PCP Family Medicine; Referring Provider Family Medicine; Visit Provider Student in an Organized Health Care Education/Training Program
DX: M25.552 Pain in left hip (principal); M25.852 Other specified joint disorders, left hip; M76.899 Other specified enthesopathies of unspecified lower limb, excluding foot
CPT/HCPCS: 73502

== ENCOUNTER 2024-12-20 05:32 | Outpatient (CLI) | payer OTHER, SELFPAY ==
--- NOTE | 2024-12-20 13:15 | DI.MAMMO_ITS ---
Exam(s) MAMMO SCREENING EXAM: MAMMO SCREENING CLINICAL HISTORY: SCREENING, Z12.31. TECHNIQUE: Bilateral full field digital CC and MLO mammographic images were obtained with 3D tomosyn thesis and utilizing computer aided detection (CAD). COMPARISON: Prior mammograms were reviewed. FINDINGS: Fibroglandular tissue pattern is again noted be moderately dense and somewhat nodular. There are no obvious new spiculated masses nor malignant appearing microcalcification groups. Multiple benign-appearing micro and macro calcifications again noted in the breasts. There is no significant architectural distortion nor skin thickening-retraction. IMPRESSION: Dense bilateral fibroglandular tissue. No obvious radiographic evidence of malignancy. BI-RADS Category 2 - Benign Findings Breast Density - Category C - The breast are heterogeneously dense, which may obscure small masses. Breast density Category C or D implies that the patient has dense breast tissue. Dense breast tissue can make it harder to find cancer on a mammogram. Dense breast tissue is also associated with an incr eased risk of breast cancer. This information about the result of the mammogram report was provided to the patient to raise their awareness. Use this report when you speak with the patient about their risks for breast cancer, which includes their family history. At that time, you may recommend additional screening tests (Ultrasoun d or MRI) as these tests may add significant information. A negative radiographic report should not delay biopsy if a dominant or clinically suspicious mass is present. Up to ten percent of cancers are not identified on mammography. A negative report may reinforce clinical impression. Adenosis and dense breasts may obscure an underlying neoplasm. False positive reports average 6 to 10%. Patient will receive a letter notifying them of these results.
== END 2024-12-20 05:52 ==
LOC: DI 05:32
PROVIDERS: PCP Family Medicine; Visit Provider Family Medicine
DX: Z12.31 Encounter for screening mammogram for malignant neoplasm of breast (principal); R92.333 Mammographic heterogeneous density, bilateral breasts; D24.1 Benign neoplasm of right breast; D24.2 Benign neoplasm of left breast
CPT/HCPCS: 77063; 77067

== ENCOUNTER 2024-12-27 02:05 | Outpatient (CLI) | payer OTHER, SELFPAY ==
--- NOTE | 2024-12-27 | DI.DEXA_ITS ---
Exam(s) XR DEXA BONE DENSITY W/WO GYPSY EXAM: XR DEXA BONE DENSITY W/WO GYPSY CLINICAL HISTORY: Asymptomatic menopausal state, Z78.0; screening for osteoporosis TECHNIQUE: [employer] Horizon C densitometer analysis of left hip, lumbar spine and left forearm. Lateral survey image of the thoracic and lumbar spine. COMPARISON: Outside exams from 2003, 2011, 2016 and 2020 FINDINGS: Lateral view of the thoracic and lumbar spine shows no evidence of compression fractures. There is scoliosis and significant degenerative changes in the lumbar spine which could falsely elevate the bone mineral density measurements due to osteophytes and endplate sclerosis. Bone mineral density measurements of the lumbar spine correspond to a total T- score of negative 0.1 in the normal range. This represents a 5.5 percent increase from 2020 and a 16.6 increase compared with 2003. Bone mineral density measurements of the left hip correspond to a total T-score of -1.6, in the osteopenic range. This represents an insignificant decrease compared to 2020 and 2.4 percent increase compared with 2003. The femoral neck T-score is -2.2. Theleft forearm bone mineral density measurements correspond to a T-score of the distal 3rd of -0.5, in the normal range. The data from the forearm examinations on the previous exams could not be up loaded for comparison for change in bone mineral density. Previous T-scores were in the normal range. IMPRESSION: Normal bone mineral density of the spine and forearm. Osteopenia of the hip.
== END 2024-12-27 02:25 ==
LOC: DI 02:05
PROVIDERS: PCP Family Medicine; Visit Provider Family Medicine
DX: Z13.820 Encounter for screening for osteoporosis (principal); Z78.0 Asymptomatic menopausal state; M85.88 Other specified disorders of bone density and structure, other site
CPT/HCPCS: 77080